=== PATIENT | male | born 1995 | race Caucasian/White ===

== ENCOUNTER 2018-06-02 00:07 | Emergency (ER) | payer MEDICAID ==
[~2018-06-02] VITALS: Ht 185.4 cm; Wt 68.0 kg
[2018-06-02 00:28] VITALS: BP 161/83
== END 2018-06-02 01:49 | disposition home or self-care (01) ==
LOC: ER 00:09
DX: S62.306A Unspecified fracture of fifth metacarpal bone, right hand, initial encounter for closed fracture (principal); Y04.2XXA Assault by strike against or bumped into by another person, initial encounter; Y93.89 Activity, other specified; Y92.89 Other specified places as the place of occurrence of the external cause; Y99.8 Other external cause status
CPT/HCPCS: 29125; 73130

== ENCOUNTER 2018-07-28 02:46 | Emergency (ER) | payer MEDICAID ==
[~2018-07-28] VITALS: Ht 188 cm; Wt 74.8 kg
[2018-07-28] MEDS ORDERED: KETOROLAC TROMETH 60MG/2ML VIAL IM ONE (04:30)
[2018-07-28 05:19] VITALS: BP 133/65
== END 2018-07-28 05:18 | disposition home or self-care (01) ==
LOC: ER 02:46
DX: S62.396A Other fracture of fifth metacarpal bone, right hand, initial encounter for closed fracture (principal); W01.198A Fall on same level from slipping, tripping and stumbling with subsequent striking against other object, initial encounter; Y93.01 Activity, walking, marching and hiking; Y99.8 Other external cause status; Y92.89 Other specified places as the place of occurrence of the external cause
CPT/HCPCS: 29125; 73130; 96372; 99283; J1885

== ENCOUNTER 2018-09-22 15:55 | Emergency (ER) | payer SELFPAY ==
[~2018-09-22] VITALS: Ht 185.4 cm; Wt 72.6 kg
[2018-09-22 16:28] VITALS: BP 97/76
[2018-09-26 13:53] LABS: Hepatitis B Surface Antibody Positive
[2018-09-26 17:01] LABS: Hepatitis B Surface Antigen Negative (Negative)
== END 2018-09-22 17:32 | disposition home or self-care (01) ==
LOC: ER 15:57
DX: S71.132A Puncture wound without foreign body, left thigh, initial encounter (principal); W27.3XXA Contact with needle (sewing), initial encounter; Y93.89 Activity, other specified; Y99.8 Other external cause status; Y92.89 Other specified places as the place of occurrence of the external cause
CPT/HCPCS: 36415; 86703; 86706; 86803; 87340